=== PATIENT | female | born 1970 | race Caucasian/White ===

== ENCOUNTER 2019-07-21 02:30 | Emergency (ER) | payer BC, SELFPAY ==
--- NOTE | ~2019-07-21 | CT_ITS ---
EXAMINATION: CT abdomen pelvis wo con DATE: 07/21/2019 03:17 INDICATION: Left flank pain TECHNIQUE: Computed tomography (CT) of the abdomen and pelvis was performed without intravenous contr ast. The dose-length product (DLP) was 1297.65 mGy-cm. Automated exposure control and iterative recon struction technique were employed. COMPARISON: None FINDINGS: There is a 7 mm nodule of the left lower lobe on image 25. The heart size is normal. There is a small sliding hiatal hernia. The liver, pancreas, gallbladder, and adrenal glands are normal. Th ere is a stable cyst of the spleen. A 4 mm stone is present at the left ureteropelvic junction which causes moderate left hydronephrosis. There is a 2 mm nonobstructing stone of the left kidney lower po le. The right kidney is unremarkable. No pathologically enlarged abdominal or pelvic lymph nodes are identified. There is no free intraperitoneal gas or evidence of bowel obstruction. There is a fat-con taining umbilical hernia. IMPRESSION: 1. 4 mm stone at the left ureteropelvic junction causing moderate left hydronephrosis. 2. Nonobstructing left nephrolithiasis. 3. 7 mm nodule of the left lower lobe. Follow-up CT in 6-12 months is recommended. Reviewed, dictated and finalized at location A. IMPRESSION: 1. 4 mm stone at the left ureteropelvic junction causing moderate left hydronep hrosis. 2. Nonobstructing left nephrolithiasis. 3. 7 mm nodule of the left lower lobe. Follow-up CT in 6-12 months is recommend ed.
[2019-07-21 02:33] VITALS: BP 153/85; PULSE 100; RESP 17; O2SAT 99
[2019-07-21 02:46] LABS: Basophils Percent Auto 0.4 % (0.2-1.2); Eosinophils Percent Auto 0.2 % (0-4.4); Hematocrit 39.3 % (37.0-47.0); Hemoglobin 12.2 g/dL (12.0-15.0); Immature Granulocyte Absolute 0.03 K/mm3 (0.00-0.031); Immature Granulocyte Percent A 0.3 % (0-0.5); Lymphocytes Absolute Auto 1.91 K/mm3 (0.9-3.2); Lymphocytes Percent Auto 20.9 % (18.3-44.2); Mean Corpuscular Hemoglobin 24.6 pg (26-34); Mean Corpuscular Volume 79.2 fl (80-100); Mean Platelet Volume 10.7 fl (7.4-10.4); Monocytes Absolute Auto 0.9 K/mm3 (0.1-0.6); Monocytes Percent Auto 9.5 % (2.6-8.5); Neutrophils Absolute Auto 6.3 K/mm3 (1.3-6.7); Neutrophils Percent Auto 68.7 % (45.5-73.1); Platelet Count Result 339 k/mm3 (150-375); Red Blood Count 4.96 M/mm3 (4.2-5.4); White Blood Count 9.1 K/mm3 (4.5-10.0)
--- NOTE | 2019-07-21 02:50 | ED.ABDPAIN ---
HPI - Abdominal Pain General Chief Complaint: Abdominal Pain Stated Complaint: kidney stone? Time Seen by Provider: 07/21/19 02:37 Source: patient Mode of arrival: ambulatory Limitations: no limitations History of Present Illness HPI narrative: Patient is a 49-year-old female who presents emergency department complaint of left flank pain. Patient reports onset of symptoms at approximately 1900 last night. Patient states pain has been constant and radiates into her back. She reports associated nausea and vomiting. Patient reports prior history of kidney stones. Patient denies any dysuria but may have had hematuria. Patient states she noted pink tinge on bathroom tissue when she wiped and was uncertain if it was vaginal or urinary in source. MD elicited complaint: flank pain Pertinent past history: kidney stones Onset (ago): hour(s) Pain Consistency: constant Location: LLQ and L flank Radiation: back Migration to: no migration Associated symptoms: nausea and vomiting Related Data Allergies Allergy/AdvReac Type Severity Reaction Status Date / Time No Known Allergies Allergy Verified 04/25/19 09:22 Review of Systems Review of Systems: All systems reviewed & are unremarkable except as noted in HPI and below Constitutional: Constitutional: Denies fever(s) Gastrointestinal: Gastrointestinal: Reports abdominal pain, Reports nausea and Reports vomiting Genitourinary: Genitourinary: Reports hematuria, Denies dysuria and Reports flank pain PMFSH Past Medical History Medical History Kidney stones Vitamin B12 deficiency Surgical History Surgical History History of cystoscopy With left ureteral stent placement History of lithotripsy Family History Family History (Updated 12/16/15 @ 12:35 by DOCTOR UNKNOWN) Mother Patient's mother is in good health Father Patient's father is in good health Sibling Patient's brother is in good health Grandparent Family history of arthritis Family history of malignant neoplasm Social History Social History Smoking status: Never smoker Second hand tobacco smoke exposure: No Alcohol intake: never Exam Const: General: cooperative, no acute distress and alert Nutritional Appearance: overweight Orientation/consciousness: patient oriented x3 Limitations: no limitations Resp: Effort & Inspection: normal respiratory effort Auscultation: clear to auscultation bilaterally Cardio: Rate: regular rate Rhythm: regular rhythm GI: GI Palp: Yes Soft to palpation and Yes Tenderness to palpation present (GI) (Mild left lower quadrant/left flank) Auscultation: normal bowel sounds : General: Yes no CVA tenderness Skin: General skin exam: normal color Neuro: General: patient oriented x3 Cognition (Neuro): normal cognition Speech: normal speech Extrem: General: normal to inspection, full ROM and no clubbing, cyanosis or edema Psych: Mental Status: mental status grossly normal Affect: normal affect Attitude: cooperative Course Course Emergency Course: Patient with findings of left proximal ureteral stone that is small in size. Patient feeling better after Toradol. Advised symptomatic management and urology follow-up. Patient with good chance the stone should be able to pass on its own, but advised importance of urology follow-up. Vital Signs Vital signs: Vital Signs Pulse Rate 100 07/21/19 02:33 Respiratory Rate 17 07/21/19 02:33 Blood Pressure 153/85 H 07/21/19 02:33 Pulse Oximetry 99 07/21/19 02:33 Pulse Rate 73 07/21/19 04:06 Respiratory Rate 15 07/21/19 04:06 Blood Pressure 116/73 07/21/19 04:06 Pulse Oximetry 99 07/21/19 04:06 MDM - Abdominal Pain Medical Records Attestation: I reviewed the patient's medical records. Lab Data Attestation: I revie
--- NOTE | 2019-07-21 03:09 | PC.NURSE ---
pt down to ct
[2019-07-21] MEDS: KETOROLAC 30 MG/ML VIAL (*BKC) IV PUSH (03:14)
[2019-07-21 03:24] LABS: Add Urine Microscopic? YES; Appearance Urine Clear (Clear); Bilirubin Urine Negative (Negative); Blood Urine 2+ (Negative); Color Urine Straw (Yellow); Glucose Urine UA Negative (Negative); Ketones Urine Negative (Negative); Leukocyte Esterase Ur Trace LEU/UL (Negative); Mucus Urine Rare /lpf; Nitrate Urine Negative (Negative); Protein Urine 1+ mg/dL (Negative); RBC Urine >75 /hpf (0-2); Specific Grav Ur 1.013 (1.001-1.035); Squamous Epithelial Cell Urine Few /hpf (Few); Urobilinogen Urine Negative mg/dL (<2.0)
[2019-07-21 03:29] LABS: Blood Urea Nitrogen 10 mg/dL (7-17); Carbon Dioxide 22 mmol/L (22-30); Chloride 107 mmol/L (98-107); Estimated Glomerular Filt Rate > 60; Glucose 137 mg/dL (65-105); Potassium 4.1 mmol/L (3.4-5.0); Sodium 137 mmol/L (137-145)
[2019-07-21 04:06] VITALS: BP 116/73; PULSE 73; RESP 15; O2SAT 99
[2019-07-21 04:20] VITALS: BP 118/78; PULSE 78; RESP 13; O2SAT 94
== END 2019-07-21 04:20 | disposition home or self-care (01) ==
PROVIDERS: Emergency Provider Emergency Medicine; PCP Family Medicine
DX: N13.2 Hydronephrosis with renal and ureteral calculous obstruction (principal); E53.8 Deficiency of other specified B group vitamins; Z87.442 Personal history of urinary calculi; R91.1 Solitary pulmonary nodule
CPT/HCPCS: 36415; 74176; 80048; 81001; 81025; 85025; 87086; 87088; 96374; 99284; J1885

== ENCOUNTER 2019-07-23 13:24 | Outpatient (CLI) | payer BC, SELFPAY ==
--- NOTE | ~2019-07-23 | XR_ITS ---
XR abdomen/kub 1V 07/23/2019 13:40 Indication: Left ureteral stone Procedure: KUB Comparison: 08/24/2016 Findings: There are multiple left renal stones. Bowel gas pattern is nonobstructive. There are pelvic phleboliths. No acute osseous abnormality. Impression: 1: Left nephrolithiasis. Reviewed, dictated and finalized at location A. Impression: 1: Left nephrolithiasis.
== END 2019-07-23 13:25 | disposition home or self-care (01) ==
LOC: ANHIMG 13:26
PROVIDERS: PCP Family Medicine; Visit Provider Urology
DX: N20.1 Calculus of ureter (principal)
CPT/HCPCS: 74018

== ENCOUNTER 2019-07-25 00:52 | Day surgery (SDC) | payer BC, SELFPAY ==
[2019-07-24 14:57] VITALS: BMI 36.6
[2019-07-25] VITALS (8 sets, daily range): BP systolic 105–148; BP diastolic 61–81; PULSE 71–109; RESP 16–20; TEMP 36.3–36.5; O2SAT 95–100
--- NOTE | ~2019-07-25 | XR_ITS ---
EXAMINATION: XR retrograde pyelogram LT DATE: 07/25/2019 15:06 CDT INDICATION: Left retrograde pyelogram with stone extraction TECHNIQUE: Multiple fluoroscopic images from a left retrograde pyelogram are submitted for review.] 5 1 fluoroscopic images. 30 seconds of fluoroscopy. FINDINGS: A catheter is placed in the left renal pelvis in a retrograde manner. There is contrast in the left renal pelvis which is moderately distended. No definite filling defects identified. The uret er and bladder are not visualized. IMPRESSION: 1. Unremarkable limited left retrograde pyelogram.. Correlate with real time procedural findings for details. Reviewed, dictated and finalized at location A. IMPRESSION: 1. Unremarkable limited left retrograde pyelogram.. Correlate with real time p rocedural findings for details.
[2019-07-25] MEDS: LACTATED RINGERS 1,000 ML 30 ML IV CONT (09:30)
--- NOTE | 2019-07-25 09:35 | WPDANESEPPF ---
Anes - Initial Pre Proc Eval Procedure: Operation Date: 07/25/19 14:30 Proposed Procedures p Cystoscopy, Left Ureteroscopy, Left Stone Extraction, Possible Left Stent Placement - Sin Noriega MD Date/Time: 07/25/19 09:35 Surgeon: Sin Noriega MD Pre Op Diagnosis: Left Kidney Stone Patient Data Age: 49 Gender: F Height: 5 ft 2 in Weight: 90.72 kg Allergies Allergy/AdvReac Type Severity Reaction Status Date / Time No Known Allergies Allergy Verified 07/24/19 15:00 Home Medications Medication Instructions Recorded Confirmed Type ketorolac 10 mg PO Q6H PRN 5 Days #20 tablet 07/21/19 07/24/19 Rx ondansetron 4 mg PO Q6H PRN #10 tablet 07/21/19 07/24/19 Rx cyanocobalamin (vitamin B-12) 1,000 mcg PO DAILY 07/24/19 07/24/19 History [Vitamin B-12] Patient hx anesthesia problems: none Family hx anesthesia problems: none PMFSH Past Medical History Medical History Kidney stones Vitamin B12 deficiency Surgical History Surgical History History of cystoscopy With left ureteral stent placement History of lithotripsy Family History Family History Mother Patient's mother is in good health Father Patient's father is in good health Sibling Patient's brother is in good health Grandparent Family history of arthritis Family history of malignant neoplasm Social History Social History Smoking status: Never smoker Second hand tobacco smoke exposure: No Alcohol intake: never Anes - Eval Final PreProcedure Day of Procedure 07/25/19 09:35 Patient weight: obese Heart: regular rate and rhythm Lungs: clear to auscultation Airway: Mallampati scale class II Neurological: alert and oriented Last oral intake: >/= 8 hours ASA classification: II Emergent: no Anesthetic plan: proceed Anesthesia type and monitoring: general LMA and standard monitoring Informed Consent: The patient's anesthetic plan and its attendant risks and benefits were discussed with the patient/family/POA. Questions were solicited and answers provided to the satisfaction of the patient/family/POA.
--- NOTE | 2019-07-25 09:59 | WPDHPUPDATE1 ---
History and Physical Update Update Date/Time: 07/25/19 09:59 History and Physical has been reviewed, including an updated exam of the patient. There are NO changes in the patient's condition. Risks, benefits, and alternatives have been discussed and questions answered. Patient agrees to proceed with procedure.
[2019-07-25] MEDS: KETOROLAC 30 MG/ML VIAL (*BKC) IM (10:31)
--- NOTE | 2019-07-25 10:32 | PM.PROC ---
Procedure Note - Detailed Date of procedure: 07/25/19 Pre-op diagnosis: Left Kidney Stone Post-op diagnosis: same Procedure performed: 1. Cystoscopy with left retrograde pyelogram. 2. Left ureteroscopy with stone extraction. Description of procedure: The patient was brought to the operative suite where she is prepped and draped in a routine sterile fashion while in the dorsal lithotomy position after the uneventful induction of a general LMA anesthetic. A 19F rigid cystoscope was placed in the bladder. The patient had no evidence of urethral stricture or bladder neck contracture. The bladder mucosa was endoscopically normal without hyperemia or neoplasm. There was a single, orthotopic ureteral orifice bilaterally. A 0.035 glidewire was advanced into the left renal pelvis under fluoroscopy. The distal ureter was dilated with an 8F/10F ureteral dilator. Ureteroscopy was undertaken with a short, tapered, semi-rigid ureteroscope. There was no stone in the distal ureter but marked mucosal hyperemia, suggesting recent passage. I then placed a 7.5F flexible ureteroscope and, with the aid of outlining collecting system anatomy with a retrograde pyelogram, identified and removed the small stone identifie in elft lower pole calyx with a 0-tip disposable stone basket. Due to the ease of this manipulation I opted not to place a ureteral stent. The patient's bladder was emptied and was taken to the recovery room having tolerated this procedure well. Anesthesia: GLMA Surgeon: Sin Noriega MD Estimated blood loss (mL): 0 Drains: No Packing: No Pathology: yes (Left renal/ureteral stone) Complications: No immediate complications Condition: stable Disposition: PACU
== END 2019-07-25 12:35 | disposition home or self-care (01) ==
PROVIDERS: PCP Family Medicine; Visit Provider Urology
PROC: (CPT 52352; principal; 2019-07-25 14:30)
DX: N20.0 Calculus of kidney (principal); E53.8 Deficiency of other specified B group vitamins; E66.9 Obesity, unspecified; Z68.38 Body mass index [BMI] 38.0-38.9, adult
CPT/HCPCS: 52352; 74420; 82365; 88300; A9270; C1726; C1758; C1769; J1100; J1885; J2250; J2405; J2704; J3010; J7120; Q9966

== ENCOUNTER → 2020-02-11 10:01 | Outpatient (CLI) | payer BC, SELFPAY ==
--- NOTE | ~2020-02-11 | XR_ITS ---
EXAMINATION: XR abdomen/kub 1V EXAM DATE: 02/11/2020 10:33 INDICATION: Kidney stone on left side TECHNIQUE: Frontal projection(s) of the abdomen for interpretation. Comparison is made to prior exami nation from 07/23/2019. FINDINGS: Difficult to identify any definite nephrolithiasis on this exam. Calcifications in the pel vis are believed to be phleboliths. There is a nonobstructive bowel gas pattern. There is no organo megaly. Lung bases are clear. There are no osseous abnormalities identified. IMPRESSION: Unremarkable XR abdomen/kub 1V exam. Reviewed, dictated and finalized at location A. OFF [employer]
== END ==
PROVIDERS: PCP Family Medicine; Visit Provider Urology
DX: N20.0 Calculus of kidney (principal)
CPT/HCPCS: 74018

== ENCOUNTER 2022-03-31 07:48 | Outpatient (CLI) | payer BC, SELFPAY ==
--- NOTE | ~2022-03-31 | MM_ITS ---
EXAMINATION: MM screening [facility] BI w mar HISTORY: Screening mammogram TECHNIQUE: Craniocaudal and mediolateral oblique 3-D tomosynthesis images were obtained and synthetic 2-D images were generated. CAD analysis was submitted and interpreted. COMPARISON: 08/30/2018, 07/19/2017, 08/28/2015 BREAST PARENCHYMAL COMPOSITION: There are scattered areas of fibroglandular density. FINDINGS: No suspicious mass, calcification, or architectural distortion are identified in either issa ast to suggest malignancy. There has been no suspicious interval change. IMPRESSION: 1. No mammographic evidence of malignancy. 2. Recommend routine screening mammography in one year. BI-RADS Category 1: Negative Reviewed, dictated and finalized at location A. I PRACTITIONER
== END 2022-03-31 07:49 | disposition home or self-care (01) ==
PROVIDERS: PCP Family Medicine; Visit Provider Physician Assistant
DX: Z12.31 Encounter for screening mammogram for malignant neoplasm of breast (principal)
CPT/HCPCS: 77063; 77067